=== PATIENT | female | born 1935 | race Hispanic/Latino ===

== ENCOUNTER 2022-11-02 06:52 | Day surgery (SDC) | payer OTHER, MEDICARE ==
[2022-10-23 15:54] VITALS: BP 141/76; PULSE 81; RESP 19
[~2022-11-02] VITALS: Ht 152.4 cm; Wt 76.2 kg
[2022-11-02] VITALS (9 sets, daily range): BP systolic 109–176; BP diastolic 54–87; PULSE 65–94; RESP 13–24
[~2022-11-02 06:52] MED LIST: 0.9%NACL 1000ML 1,000 ML IV ONE; AEC81 PO; ALBU8.5H8 IH; ALEN70TA80 PO; APIX5TAB PO; CETI-340 PO; CHOL100053 PO; DOCU-116 PO; FLUT15.845 NS; FLUT1BLS IH; FOLI1TAB61 PO; FURO20TA4 PO; LEVO100C4 PO; METO50TA18 PO; OMEP40CA21 PO; PRAV10TA39 PO; TRAM50TA4 PO
[2022-11-02] MEDS ORDERED: LIDOCAINE PF 100MG/5ML (2%) SYRINGE 5ML ONE (10:47)
[2022-11-02] MEDS ORDERED: PROPOFOL 10 MG/ML 20ML VIAL IV ONE (10:47)
== END 2022-11-02 12:20 | disposition home or self-care (01) ==
LOC: DAH 06:52 → ENDO 06:52
PROVIDERS: ATTEND Internal Medicine Gastroenterology
DX: K31.819 Angiodysplasia of stomach and duodenum without bleeding (principal); D50.9 Iron deficiency anemia, unspecified; K44.9 Diaphragmatic hernia without obstruction or gangrene; K21.9 Gastro-esophageal reflux disease without esophagitis; K57.30 Diverticulosis of large intestine without perforation or abscess without bleeding; R94.5 Abnormal results of liver function studies; K29.70 Gastritis, unspecified, without bleeding; I10 Essential (primary) hypertension; M10.9 Gout, unspecified; M19.90 Unspecified osteoarthritis, unspecified site; E78.5 Hyperlipidemia, unspecified; M81.0 Age-related osteoporosis without current pathological fracture; J45.909 Unspecified asthma, uncomplicated; Z98.890 Other specified postprocedural states; Z79.82 Long term (current) use of aspirin; Z79.01 Long term (current) use of anticoagulants; Z79.899 Other long term (current) drug therapy; Z99.3 Dependence on wheelchair
CPT/HCPCS: 44366; J7030 ×2; J2001; J2704; A4620; A4215 ×2; A4223; A7002; A4222; A4221; A4663; A4216; A4606; J3490

== ENCOUNTER → 2023-06-05 | Outpatient (CLI) | payer OTHER, MEDICARE ==
[~2023-06-05] MED LIST changes: -0.9%NACL 1000ML 1,000 ML IV ONE; -CETI-340 PO; +CETI-341 PO
== END | disposition home or self-care (01) ==
LOC: SHCH 12:54
PROVIDERS: ATTEND Internal Medicine Cardiovascular Disease
DX: I08.0 Rheumatic disorders of both mitral and aortic valves (principal); I11.9 Hypertensive heart disease without heart failure; E78.5 Hyperlipidemia, unspecified; I48.0 Paroxysmal atrial fibrillation
CPT/HCPCS: 93306

== ENCOUNTER → 2023-06-08 | Outpatient (CLI) | payer OTHER, MEDICARE ==
[2023-06-08 12:16] LABS: BASOPHILS # (AUTO) 0.05 K/uL (0.00-0.20); BASOPHILS % (AUTO) 0.4 % (0.0-5.0); EOSINOPHILS # (AUTO) 0.43 K/uL (0.00-0.70); EOSINOPHILS % (AUTO) 3.8 % (0.0-8.0); HEMATOCRIT 34.5 % (36-48); IMMATURE GRANULOCYTE ABSOLUTE 0.04 K/uL (0-1); LYMPHOCYTES # (AUTO) 1.9 K/uL (1.0-4.8); LYMPHOCYTES % (AUTO) 16.4 % (21.0-51.0); MEAN CORPUSCULAR HEMOGLOBIN 28.4 pg (27.0-33.0); MEAN CORPUSCULAR HGB CONC 31.9 g/dL (32.0-36.0); MEAN CORPUSCULAR VOLUME 89.1 fL (79-99); MONOCYTES # (AUTO) 0.7 K/uL (0.1-1.0); NEUTROPHILS # (AUTO) 8.4 K/uL (1.8-7.7); NEUTROPHILS % (AUTO) 73.1 % (40.0-77.0); PLATELET COUNT (AUTO) 188 K/uL (130-400); RED BLOOD CELL COUNT(AUTO) 3.87 MIL/uL (4.00-5.50); RED CELL DISTRIBUTION WIDTH 13.6 % (11.0-15.5); WHITE BLOOD COUNT (AUTO) 11.5 K/uL (4.8-10.8)
[2023-06-08 12:27] LABS: APPEARANCE,URINE CLEAR (CLEAR); COLOR,URINE LIGHT-YELLOW (YELLOW); GLUCOSE, URINE (UA) NEGATIVE (NEGATIVE); KETONES,URINE NEGATIVE (NEGATIVE); LEUKOCYTE ESTERASE ,URINE 75 Leu/uL (NEGATIVE); NITRATE,URINE NEGATIVE (NEGATIVE); OCCULT BLOOD,URINE MODERATE (NEGATIVE); PROTEIN,URINE NEGATIVE (NEGATIVE); UROBILINOGEN,URINE 0.2 mg/dL (0.2-1.0)
[2023-06-08 12:36] LABS: ADD UA MICROSCOPIC YES
[2023-06-08 12:53] LABS: ALBUMIN 2.7 g/dL (3.5-5.0); BILIRUBIN,TOTAL 0.5 mg/dL (0.2-1.0); CREATININE 1.2 mg/dL (0.5-1.0); MAGNESIUM 2.1 mg/dL (1.80-2.40); POTASSIUM 4.8 mmol/L (3.5-5.1); TOTAL PROTEIN, SERUM 7.9 g/dL (6.0-8.3)
[2023-06-08 13:10] LABS: BACTERIA,URINE RARE /HPF (None Seen); MUCUS,URINE RARE LPF (None Seen); RBC,URINE 0-1 /HPF (0-1); SQUAMOUS EPITHELIAL CELL,UR RARE /HPF (0-2)
[2023-06-08 14:13] LABS: BILIRUBIN,URINE NEGATIVE (NEGATIVE); BILIRUBIN,URINE(TEMPORARY) NEGATIVE (NEGATIVE)
== END | disposition home or self-care (01) ==
LOC: LAB 10:26
PROVIDERS: ATTEND Physician Assistant
DX: I10 Essential (primary) hypertension (principal); E78.5 Hyperlipidemia, unspecified; Z79.899 Other long term (current) drug therapy
CPT/HCPCS: 36415; 80053; 81001; 81002; 82270; 83735; 83880; 85025; 87077; 87088; 87186

== ENCOUNTER 2023-11-28 06:30 | Day surgery (SDC) | payer OTHER, MEDICARE ==
[~2023-11-28] VITALS: Ht 152.4 cm; Wt 80.7 kg
[~2023-11-28 06:30] MED LIST changes: -AEC81 PO; +APIX2.5T PO; -APIX5TAB PO; +ASPI-1005 PO; +ATOR10 PO; -CHOL100053 PO; -DOCU-116 PO; -FLUT15.845 NS; -FLUT1BLS IH; +FOLI0.8T21 PO; -FOLI1TAB61 PO; +IRON150C13 PO; -METO50TA18 PO; +METO75TA PO; +POTA-200 PO; -PRAV10TA39 PO; -TRAM50TA4 PO; +VITAMIN D PO
[2023-11-28 06:56] VITALS: BP 143/83; PULSE 100; RESP 16; TEMP 97
[2023-11-28] MEDS: 0.9%NACL 1000ML 1,000 ML IV ONE (06:58)
[2023-11-28] MEDS ORDERED: proPOFol 10 MG/ML 20ML VIAL IV ONE (08:47)
== END 2023-11-28 12:00 | disposition home or self-care (01) ==
LOC: DAH 06:30
PROVIDERS: ATTEND Internal Medicine Gastroenterology
DX: D50.9 Iron deficiency anemia, unspecified (principal); K31.819 Angiodysplasia of stomach and duodenum without bleeding; Z53.8 Procedure and treatment not carried out for other reasons
CPT/HCPCS: J2704; J7030; J3490

== ENCOUNTER 2023-12-10 07:02 | Day surgery (SDC) | payer OTHER, MEDICARE ==
[~2023-12-10] VITALS: Ht 152.4 cm; Wt 81.2 kg
[2023-12-10] VITALS (10 sets, daily range): BP systolic 90–153; BP diastolic 48–76; PULSE 61–90; RESP 15–17; TEMP 96.5–97.9
[2023-12-10] MEDS ORDERED: TIZA-194 PO (07:51)
[2023-12-10] MEDS ORDERED: LOSA25TA41 PO (07:52)
[2023-12-10] MEDS ORDERED: CLON0.1T PO (07:53)
[2023-12-10] MEDS: 0.9%NACL 1000ML 1,000 ML IV ONE (08:04)
[2023-12-10] MEDS ORDERED: proPOFol 10 MG/ML 20ML VIAL IV ONE (09:16)
[2023-12-10] MEDS ORDERED: phenylEPHRINE HCL 10 MG/ML 1ML VIAL IV ONE (09:26)
[2023-12-10] MEDS ORDERED: GOLY4L PO ×2 (10:30)
== END 2023-12-10 10:42 | disposition home or self-care (01) ==
LOC: DAH 07:02 → ENDO 07:02
PROVIDERS: ATTEND Internal Medicine Gastroenterology
DX: D50.9 Iron deficiency anemia, unspecified (principal); K92.1 Melena; K31.811 Angiodysplasia of stomach and duodenum with bleeding; K29.50 Unspecified chronic gastritis without bleeding; K31.89 Other diseases of stomach and duodenum; K57.30 Diverticulosis of large intestine without perforation or abscess without bleeding; M10.9 Gout, unspecified; K21.9 Gastro-esophageal reflux disease without esophagitis; M19.90 Unspecified osteoarthritis, unspecified site; J45.909 Unspecified asthma, uncomplicated; I10 Essential (primary) hypertension; E78.5 Hyperlipidemia, unspecified; M81.0 Age-related osteoporosis without current pathological fracture; R94.5 Abnormal results of liver function studies; Z99.3 Dependence on wheelchair; Z90.49 Acquired absence of other specified parts of digestive tract; Z86.73 Personal history of transient ischemic attack (TIA), and cerebral infarction without residual deficits; Z98.49 Cataract extraction status, unspecified eye; Z88.1 Allergy status to other antibiotic agents; Z88.8 Allergy status to other drugs, medicaments and biological substances; Z79.899 Other long term (current) drug therapy; Z53.8 Procedure and treatment not carried out for other reasons
CPT/HCPCS: 43255; 82948 ×2; 43239; 45378; J7030; J2704; J2371; A4620; A4215 ×2; A4223; A4222; A4221; A4663; A4606; J3490

== ENCOUNTER 2023-12-11 05:46 | Day surgery (SDC) | payer OTHER, MEDICARE ==
[2023-12-11] VITALS (11 sets, daily range): BP systolic 90–160; BP diastolic 45–77; PULSE 77–99; RESP 15–19; TEMP 96.6–97.6
[~2023-12-11] VITALS: Ht 152.4 cm; Wt 81.2 kg
[~2023-12-11 05:46] MED LIST changes: +CLON0.1T PO; +GOLY4L PO; +LOSA25TA41 PO; +TIZA-194 PO
[2023-12-11] MEDS: 0.9%NACL 1000ML 1,000 ML IV ONE (06:26)
[2023-12-11] MEDS ORDERED: proPOFol 10 MG/ML 20ML VIAL IV ONE (07:36)
== END 2023-12-11 08:53 | disposition home or self-care (01) ==
LOC: ENDO 05:46 → DAH 05:46 → ENDO 08:53
PROVIDERS: ATTEND Internal Medicine Gastroenterology
DX: D50.9 Iron deficiency anemia, unspecified (principal); K92.1 Melena; K57.30 Diverticulosis of large intestine without perforation or abscess without bleeding; K29.70 Gastritis, unspecified, without bleeding; K31.819 Angiodysplasia of stomach and duodenum without bleeding; R94.5 Abnormal results of liver function studies; I10 Essential (primary) hypertension; J45.909 Unspecified asthma, uncomplicated; M19.90 Unspecified osteoarthritis, unspecified site; Z86.73 Personal history of transient ischemic attack (TIA), and cerebral infarction without residual deficits; K21.9 Gastro-esophageal reflux disease without esophagitis; M10.9 Gout, unspecified; M81.0 Age-related osteoporosis without current pathological fracture; E78.5 Hyperlipidemia, unspecified; Z90.49 Acquired absence of other specified parts of digestive tract; Z98.49 Cataract extraction status, unspecified eye; Z79.82 Long term (current) use of aspirin; Z79.01 Long term (current) use of anticoagulants; Z79.899 Other long term (current) drug therapy; Z99.3 Dependence on wheelchair; Z53.8 Procedure and treatment not carried out for other reasons
CPT/HCPCS: 45378; 82948 ×2; J7030 ×2; J2704; A4615; A4215 ×2; A4223; A4222; A4221; A4663; A4606; 45380; J3490

== ENCOUNTER 2024-11-26 07:01 | Day surgery (SDC) | payer OTHER, MEDICAID ==
[~2024-11-26] VITALS: Ht 152.4 cm; Wt 75.7 kg
[2024-11-26] VITALS (12 sets, daily range): BP systolic 95–156; BP diastolic 45–75; PULSE 67–77; RESP 15–18; TEMP 96.9–97.8
[~2024-11-26 07:01] MED LIST changes: -CLON0.1T PO; -GOLY4L PO; -LEVO100C4 PO; +LEVO100C5 PO; -TIZA-194 PO; +TRAMADOL PO
[2024-11-26] MEDS: 0.9%NACL 1000ML 1,000 ML IV ONE (08:05)
== END 2024-11-26 11:35 | disposition home or self-care (01) ==
LOC: DAH 07:01 → ENDO 07:01
PROVIDERS: ATTEND Internal Medicine
DX: D50.9 Iron deficiency anemia, unspecified (principal); K29.50 Unspecified chronic gastritis without bleeding; K76.6 Portal hypertension; K31.89 Other diseases of stomach and duodenum; J45.909 Unspecified asthma, uncomplicated; K21.9 Gastro-esophageal reflux disease without esophagitis; M10.9 Gout, unspecified; M81.0 Age-related osteoporosis without current pathological fracture; Z90.49 Acquired absence of other specified parts of digestive tract; Z86.73 Personal history of transient ischemic attack (TIA), and cerebral infarction without residual deficits; Z88.1 Allergy status to other antibiotic agents; Z79.899 Other long term (current) drug therapy
CPT/HCPCS: 43239; J7030 ×2; J2704; A4620; A7002; J3490